=== PATIENT | female | born 1945 | race Caucasian/White ===

== ENCOUNTER → 2022-03-19 13:26 | Outpatient (CLI) | payer MEDICARE, OTHER, SELFPAY ==
--- NOTE | 2022-03-19 | DI.ECHO.S_ITS ---
[facility] +---------+ [facility] +---------+ : : [address] : [place] : : : : [id number] : : : : Phone: [phone]---------+ Echocardiogram Report + + :Name: ANT PADRON Study Date: 03/19/2022 Height: 61 in : :[facility] ReadingLocation: Weight: 118 lb : : Gender: Female BSA: 1.5 m2 : :: 1945 Age: 76 yrs BP: 158/53 mmHg: :Reason For Study: MURMUR : :Ordering Physician: REJI, : :MICKEY Performed By: Sade Mathias : :Referring: MICKEY MENDOZA : + + Interpretation Summary The left ventricle is normal in size and wall thickness. Left ventricular systolic function appears normal without focal wall motion abnormalities. The ejection fraction is estimated to be 60-65%. The right ventricle is normal in size and function. The right ventricular systolic pressure is estimated to be at least 37 mmHg based on an estimated right atrial pressure of 3 mm Hg. The left atrium is moderately dilated. Right atrial size is normal. There is mild mitral regurgitation. There is mild to moderate aortic regurgitation. There is no other significant valvular heart disease. The aortic root is normal size. Procedure: A two-dimensional transthoracic echocardiogram with color flow and Doppler was performed. The study quality was technically adequate. There is no prior echocardiogram noted for this patient. The patient was in sinus rhythm with heart rates between 65-70 bpm during the exam. Left Ventricle: The left ventricle is normal in size and wall thickness. Left ventricular systolic function appears normal without focal wall motion abnormalities. The ejection fraction is estimated to be 60-65%. Diastolic function could not be accurately assessed due to contradictory data. Right Ventricle: The right ventricle is normal in size and function. Atria: The left atrium is moderately dilated. Right atrial size is normal. There is no Doppler evidence for an interatrial shunt. Mitral Valve: The mitral valve leaflets appear mildly thickened, but open well. There is mild mitral regurgitation. Aortic Valve: The aortic valve is trileaflet. The aortic valve opens well. There is no aortic valve stenosis. There is mild to moderate aortic regurgitation. Tricuspid Valve: The tricuspid valve is normal in structure and function. There is mild tricuspid regurgitation. The right ventricular systolic pressure is estimated to be at least 37 mmHg based on an estimated right atrial pressure of 3 mm Hg. Pulmonic Valve: The pulmonic valve leaflets are thin and pliable; valve motion is normal. There is trace pulmonic regurgitation. There is no other significant valvular heart disease. Great Vessels: The aortic root is normal size. The dimensions of the ascending aorta are normal. The IVC is of normal diameter and collapses greater than 50% with a sniff. This suggests a low right atrial pressure of 3 mm Hg. Pericardium/ Pleura There is no pericardial effusion. There is no pleural effusion. MMode/2D Measurements & Calculations LVIDd: 4.5 cm LVOT diam: 2.0 cm LVIDs: 2.8 cm Ao root diam: 3.2 cm FS: 36.7 % asc Aorta Diam: 2.6 cm IVSd: 0.97 cm Ao Arch Diam (Prox Trans): 2.4 cm LVPWd: 0.97 cm LV garcia. diameter/BSA (cm/m^2): 3.0 LV sys. diameter/BSA (cm/m^2): 1.9 LA A2 area: 19.7 cm2 RA long axis: 4.4 cm LA A4 area: 22.9 cm2 RA area: 11.2 cm2 LA length (vol): 5.4 cm RA vol: 24.5 ml LA vol: 71.2 ml RA : 16.2 ml/m2 LA vol index: 47.1 ml/m2 IVC diam: 1.2 cm RVD1 (basal): 3.3 cm RVD2 (mid): 2.9 cm TAPSE: 1.8 cm Doppler Measurements & Calculations Ao V2 max: 130.0 cm/sec LVOT Max Rodolfo: 98.3 cm/sec Ao V2 mean: 94.7 cm/sec LV V1 max P.9 mmHg Ao max P.8 mmHg LV V1 VTI: 23.9 cm Ao mean P.0 mmHg HAN(I,D): 2.0 cm2 Ao V2 VTI: 36.8 cm HAN(V,D): 2.3 cm2 sev ratio: 0.65 HAN indexed to BSA (cm^2/m^2): 1.3 AI P1/2t: 408.0 msec AI dec slope: 287.1 cm/sec2 MV E max rodolfo: 89.1 cm/sec TR max rodolfo: 289.2 cm/sec MV A max rodolfo: 98.5 cm/sec TR max P.5 mmHg MV E/A: 0.90 PA V2 max: 77.9 cm/sec Med Peak E' Rodolfo: 7.0 cm/sec PA V2 mean: 55.2 cm/sec E/E' med: 12.6 PA mean P.4 mmHg Lat Peak E' Rodolfo: 6.6 cm/sec PA pr(Accel): 39.6 mmHg E/E' lat: 13.5 E/e' average: 13.1 MV dec time: 0.21 sec SV(LVOT): 73.2 ml Reading Physician:04:09 PM
== END ==
PROVIDERS: PCP Physician Assistant Medical; Referring Provider Physician Assistant Medical; Visit Provider Physician Assistant Medical
DX: R01.1 Cardiac murmur, unspecified (principal); I08.3 Combined rheumatic disorders of mitral, aortic and tricuspid valves
CPT/HCPCS: 93306

== ENCOUNTER → 2022-10-03 08:08 | Outpatient (CLI) | payer MEDICARE, OTHER, SELFPAY ==
[2022-10-03 10:16] LABS: COVID19 -Nasal RAPID Negative (Negative)
--- NOTE | 2022-10-03 19:16 | DI.NM.S_ITS ---
DATE OF SERVICE: PROCEDURE: Pharmacological perfusion study. INDICATION: Chest pain with underlying hypertension and hyperlipidemia. RADIOPHARMACEUTICAL: 25.0 mCi technetium-99m Myoview IV was injected at stress, and 12.4 mCi technetium-99m Myoview IV was injected at rest. CARDIAC STRESS: The patient underwent IV Lexiscan perfusion study under the supervision of an attending staff. The patient remained hemodynamically stable. Baseline blood pressure 125/58 mmHg. The patient had minimal dyspnea and chest discomfort during Lexiscan injection, which got resolved in recovery. Baseline rhythm was sinus. During Lexiscan, some nonspecific ST-T changes. No significant arrhythmias. RAW DATA: Significant breast shadow seen. Increased subdiaphragmatic activity. GATED STUDY: Stress LV ejection fraction 86 percent and resting LV ejection fraction 84 percent without any obvious wall motion abnormalities. Resting end- diastolic volume 79 mL. TID ratio 0.97, which is within normal limits. Lung/heart ratio 0.27, which is within normal limits. MYOCARDIAL PERFUSION: Stress supine, resting supine and stress prone images were compared to each other. Stress supine and resting supine images revealed small size inferoapical defect, which got completely resolved during prone images suggestive of tissue attenuation artifact. CONCLUSION: I will call this study a normal myocardial perfusion study with evidence of tissue attenuation artifact, which got resolved during stress prone images. Preserved left ventricular function. Overall low-risk myocardial perfusion scan. Lyric Caro - [facility] doc#: [id number]/job#: [id number] dd: 10/03/2022 17:01:00 dt: 10/03/2022 18:59:00 DICTATING MD/COPIES TO: Stefani Washburn MD COPIES MNE: SHLOMO;
== END ==
PROVIDERS: PCP Physician Assistant Medical; Referring Provider Internal Medicine Cardiovascular Disease; Visit Provider Internal Medicine Cardiovascular Disease
DX: R53.83 Other fatigue (principal); R07.9 Chest pain, unspecified; R06.09 Other forms of dyspnea; I10 Essential (primary) hypertension; E78.5 Hyperlipidemia, unspecified; Z20.822 Contact with and (suspected) exposure to COVID-19
CPT/HCPCS: 78452; 87635; 93017; A9502; J2785